=== PATIENT | male | born 1965 | race Caucasian/White ===

== ENCOUNTER 2018-02-07 20:20 | Emergency (ER) | payer SELFPAY ==
[~2018-02-07] VITALS: Ht 172.7 cm; Wt 77.1 kg
[2018-02-07 20:42] VITALS: BP 143/92
[2018-02-07] MEDS ORDERED: CLINDAMYCIN 900 MG/6 ML VIAL ONE (21:57)
[2018-02-07] MEDS ORDERED: CLINDAMYCIN 600 MG in IV D5W 100 ML IM ONE (22:00)
== END 2018-02-07 22:31 | disposition home or self-care (01) ==
LOC: ER 20:25
DX: L03.211 Cellulitis of face (principal); K08.9 Disorder of teeth and supporting structures, unspecified; Z60.2 Problems related to living alone
CPT/HCPCS: 96372; 99283; A4606; J3490 ×2; J7060; Z7610